=== PATIENT | male | born 1940 | race Two or more races ===

== ENCOUNTER 2018-03-17 07:09 | Outpatient (CLI) | payer OTHER | END 2018-03-17 17:05 | disposition home or self-care (01) | LOC: NUCLEAR 07:09 | DX: I82.403 Acute embolism and thrombosis of unspecified deep veins of lower extremity, bilateral (principal) ==

== ENCOUNTER 2018-11-01 14:20 | Outpatient (CLI) | payer OTHER | END 2018-11-01 14:29 | disposition home or self-care (01) | LOC: LAB 14:20 | DX: R97.8 Other abnormal tumor markers (principal) ==

== ENCOUNTER → 2018-11-11 | Outpatient (CLI) | payer OTHER | END | disposition home or self-care (01) | LOC: SONOGRAMA 07:19 | DX: C61 Malignant neoplasm of prostate (principal); R97.20 Elevated prostate specific antigen [PSA] ==

== ENCOUNTER 2018-11-21 14:16 | Outpatient (CLI) | payer OTHER | END 2018-11-21 17:00 | disposition home or self-care (01) | LOC: TOM 14:16 | DX: C61 Malignant neoplasm of prostate (principal) ==

== ENCOUNTER → 2018-11-25 | Outpatient (CLI) | payer OTHER | END | disposition home or self-care (01) | LOC: NUCLEAR 07:00 | DX: C61 Malignant neoplasm of prostate (principal) | CPT/HCPCS: 78306; 78320; A9503 ==

== ENCOUNTER 2019-02-28 21:41 | Emergency (ER) | payer OTHER ==
[~2019-02-28] VITALS: Ht 167.6 cm; Wt 86.2 kg
[2019-02-28] MEDS ORDERED: IBUPROFEN200 M1 (21:50)
[2019-03-01] MEDS ORDERED: CIPRO500 MG PO (15:55)
== END 2019-03-01 18:23 | disposition home or self-care (01) ==
LOC: ER 21:41
DX: N32.89 Other specified disorders of bladder (principal); R31.9 Hematuria, unspecified

== ENCOUNTER 2019-09-25 08:37 | Outpatient (CLI) | payer OTHER ==
[~2019-09-25 08:37] MED LIST: CIPRO500 MG PO; IBUPROFEN200 M1
== END 2019-09-25 09:10 | disposition home or self-care (01) ==
LOC: NUCLEAR 08:37
DX: C61 Malignant neoplasm of prostate (principal)
CPT/HCPCS: 78803; A9503

== ENCOUNTER 2021-04-14 08:00 | Outpatient (CLI) | payer OTHER | END 2021-04-14 08:30 | disposition home or self-care (01) | LOC: PPH VACUNA 08:00 | DX: Z23 Encounter for immunization (principal) ==

== ENCOUNTER 2022-12-25 07:38 | Outpatient (CLI) | payer OTHER | END 2022-12-25 07:40 | disposition home or self-care (01) | LOC: NUCLEAR 07:38 | PROVIDERS: ATTEND Internal Medicine | DX: I20.9 Angina pectoris, unspecified (principal); E78.2 Mixed hyperlipidemia; R06.00 Dyspnea, unspecified | CPT/HCPCS: 78452; 93017; A9500; J0153 ==

== ENCOUNTER 2025-02-06 09:52 | Inpatient (IN) | payer OTHER ==
[~2025-02-06] VITALS: Ht 170.2 cm; Wt 99.3 kg
[2025-02-06] MEDS ORDERED: TAGAMET HB200 MG (10:29)
[2025-02-06] MEDS ORDERED: ZOLPIDEM TARTR3.5 MG (10:29)
[2025-02-06] MEDS ORDERED: LIPITOR20 MG PO (10:29)
[2025-02-06] MEDS ORDERED: NORVASC10 MG PO (10:30)
[2025-02-06] MEDS ORDERED: LOSARTAN POTAS100 MG PO (10:30)
[2025-02-06 12:47] LABS: BASO % 0.6 % (0.1-1.2); EOS # 0.04 (0.04-0.54); EOS % 0.6 % (0.7-7.0); HEMATOCRIT 39.3 % (40.1-51.0); HEMOGLOBIN 13.1 g/dL (13.7-17.5); LYMPH % 17.2 % (19.3-53.1); MEAN CORPUSCULAR HEMOGLOBIN 28.7 pg (25.6-32.2); MONO # 0.91 (0.24-0.82); NEUT # 4.29 (1.56-6.13); NEUT % 67.1 % (34.0-71.1); PLATELET COUNT 262 K/uL (163-369); RED BLOOD COUNT 4.57 M/uL (4.63-6.08); RED CELL DISTRIBUTION WIDTH 14.4 % (11.6-14.4)
[2025-02-06 12:49] LABS: MONO % 14.2 % (4.7-12.5)
[2025-02-06 13:02] LABS: PH,URINE 6.5 (5.0-8.0); URINE APPEARANCE Clear; URINE BILIRRUBIN Negative (NEGATIVE); URINE BLOOD Negative; URINE COLOR Yellow; URINE GLUCOSE Negative (NEGATIVE); URINE KETONE Negative (NEGATIVE); URINE LEUKOCYTE Negative; URINE NITRATE Negative; URINE PROTEIN Negative (NEGATIVE); URINE UROBILINOGEN 0.2 E.U./dl
[2025-02-06 13:03] LABS: URINE BACTERIA 106.4 uL (0.0-1933); URINE EPITHELIAL CELLS 5.9 uL (0.0-38.8); URINE RBC 11.3 uL (0.0-20.8); URINE WBC 3.9 uL (0.0-23.2)
[2025-02-06 13:05] LABS: INFLUENZA A AG NEGATIVE (NEGATIVE); INFLUENZA B AG NEGATIVE (NEGATIVE)
[2025-02-06 13:17] LABS: ALBUMIN 3.9 gm/dL (3.4-5.0); BILIRUBIN TOTAL 0.51 mg/dL (0.3-1.2); CALCIUM 9.2 mg/dL (8.5-10.1); CREATININE SERUM 1.13 mg/dL (0.70-1.30); GFR 61.82; GLOBULINA 3.9 G/DL (2.4-3.5); POTASSIUM 4.73 mEq/L (3.5-5.1); TOTAL PROTEIN 7.8 gm/dL (6.4-8.2)
[2025-02-06 13:25] LABS: COVID-19 AG NEGATIVE (NEGATIVE)
[2025-02-06] MEDS ORDERED: AMLODIPINE BESYLATE 10 MG TABLET PO SCH (18:26)
[2025-02-06] MEDS ORDERED: PIPERACILLIN/TAZOBACTAM SODIUM 3.375 GM in DEXTROSE 5 % IN WATER 100 ML IV SCH (18:26)
[2025-02-06] MEDS ORDERED: FAMOTIDINE/PF 20 MG in 0.9 % SODIUM CHLORIDE 8 ML IV PUSH SCH (18:27)
[2025-02-06] MEDS ORDERED: ACETAMINOPHEN 500 MG GEL..CAP PO PRN (18:30)
[2025-02-06] MEDS ORDERED: 0.9 % SODIUM CHLORIDE 1,000 ML IV SCH (18:30)
[2025-02-06] MEDS ORDERED: FAMOTIDINE/PF 20 MG/2 ML VIAL ONE (19:53)
[2025-02-06] MEDS ORDERED: PIPERACILLIN/TAZOBACTAM SODIUM 3.375 GM VIAL IV ONE (19:53)
[2025-02-06 20:13] VITALS: BP 170/72
[2025-02-06] MEDS ORDERED: LOSARTAN POTASSIUM 100 MG TABLET PO SCH (20:39)
[2025-02-06] MEDS ORDERED: ZOLPIDEM TARTRATE 10 MG TABLET PO SCH (21:00)
[2025-02-06 22:29] VITALS: BP 157/79; O2SAT 96
[2025-02-07 01:33] VITALS: BP 132/63; O2SAT 98
[2025-02-07 06:41] LABS: INR 0.96; PARTIAL THROMBOPLASTIN TIME 24.4 SECONDS (22.0-34.0); PROTHROMBIN TIME 10.5 SECONDS (9.0-11.5)
[2025-02-07 08:03] VITALS: BP 160/79
[2025-02-07] MEDS ORDERED: SODIUM HYPOCHLORITE 1OZ TOP SCH (09:00)
[2025-02-07] MEDS ORDERED: ATORVASTATIN CALCIUM 20 MG TABLET PO SCH (09:00)
[2025-02-07] MEDS ORDERED: LOSARTAN POTASSIUM 100 MG TABLET PO SCH (09:00)
[2025-02-07] MEDS ORDERED: ENOXAPARIN SODIUM 40 MG/0.4 ML SYRINGE SUBCUTANEO SCH (09:00)
[2025-02-07] MEDS ORDERED: VANCOMYCIN HCL 5 MG/ML REDILUIDO IV SCH (17:00)
[2025-02-07 18:02] VITALS: BP 163/76; O2SAT 96
[2025-02-08 01:20] VITALS: BP 126/70; O2SAT 98
[2025-02-08 08:52] VITALS: BP 183/85
[2025-02-08] MEDS ORDERED: SODIUM CHLORIDE 0.45 % 1,000 ML IV SCH (10:30)
[2025-02-08] MEDS ORDERED: DEXTROSE 50 % IN WATER 0.5 G/ML DISP.SYRIN IV PRN (10:30)
[2025-02-08] MEDS ORDERED: INSULIN LISPRO 1,000 UNIT/10 ML UNITS SUBCUTANEO PRN (10:30)
[2025-02-08 16:32] VITALS: BP 158/71
[2025-02-09 00:39] VITALS: BP 150/73; O2SAT 95
[2025-02-09] MEDS ORDERED: FAMOTIDINE/PF 20 MG/2 ML VIAL ONE (08:30)
[2025-02-09 09:35] VITALS: BP 152/74
[2025-02-09] MEDS ORDERED: LINEZOLID 600 MG TABLET PO SCH (17:00)
[2025-02-09] MEDS ORDERED: FAMOtidine 20 MG TABLET PO SCH (21:00)
== END 2025-02-09 17:45 | disposition left against medical advice (07) | DRG 603 ==
LOC: ER 09:52 → MEDI 18:57
PROVIDERS: Emergency Medicine; General Practice; ADMIT Internal Medicine; ATTEND Internal Medicine
PROC: B54DZZZ Ultrasonography of Bilateral Lower Extremity Veins (ICD-10-PCS; principal; 2025-02-06)
PROC: B44HZZZ Ultrasonography of Bilateral Lower Extremity Arteries (ICD-10-PCS; 2025-02-06)
DX: L03.115 Cellulitis of right lower limb (principal); L08.89 Other specified local infections of the skin and subcutaneous tissue; I10 Essential (primary) hypertension; G20.A1 Parkinson's disease without dyskinesia, without mention of fluctuations